=== PATIENT | female | born 1965 | race Two or more races ===

== ENCOUNTER 2022-09-30 23:23 | Emergency (ER) | payer SELFPAY ==
[~2022-09-30] VITALS: Ht 152.4 cm; Wt 66.4 kg
[2022-10-01] MEDS ORDERED: ALBUAER3 IN (04:12)
[2022-10-01 04:58] VITALS: BP 130/91
== END 2022-10-01 05:00 | disposition home or self-care (01) ==
LOC: ER 23:23
DX: T59.91XA Toxic effect of unspecified gases, fumes and vapors, accidental (unintentional), initial encounter (principal); Y92.89 Other specified places as the place of occurrence of the external cause
CPT/HCPCS: 70450